=== PATIENT | female | born 1935 | race Caucasian/White ===

== ENCOUNTER → 2017-05-04 | Outpatient (CLI) | payer OTHER, MEDICARE ==
[~2017-05-04] MED LIST: CALCIUM + D SO1 EACH PO; FISH OIL 1,001000 M2 PO; FLOVENT HFA 1110 MCG INH; LEVAQUIN 500 M500 M2 PO; METFORMIN HCL500 MG PO; PATANOL5 ML OPHTHALMIC; PROAIR HFA8.5 GM; SINGULAIR 10 MG10 M1 PO
== END ==
LOC: RAD 03:04
DX: Z12.31 Encounter for screening mammogram for malignant neoplasm of breast (principal)

== ENCOUNTER 2017-12-15 00:44 | Emergency (ER) | payer OTHER, MEDICARE ==
[~2017-12-15] VITALS: Ht 160 cm; Wt 49.9 kg
[2017-12-15 03:23] VITALS: BP 144/88
== END 2017-12-15 03:31 | disposition home or self-care (01) ==
LOC: ER 00:44
DX: M25.511 Pain in right shoulder (principal); M19.90 Unspecified osteoarthritis, unspecified site; W01.0XXA Fall on same level from slipping, tripping and stumbling without subsequent striking against object, initial encounter; Y93.89 Activity, other specified; Y92.89 Other specified places as the place of occurrence of the external cause; Y99.8 Other external cause status

== ENCOUNTER → 2018-05-08 | Outpatient (CLI) | payer OTHER, MEDICARE | LOC: RAD 01:10 | DX: Z12.31 Encounter for screening mammogram for malignant neoplasm of breast (principal) ==